=== PATIENT | male | born 1985 | race Caucasian/White ===

== ENCOUNTER 2017-06-27 09:02 | Emergency (ER) | payer OTHER ==
[2017-06-27 09:47] LABS: ABS Basophils 0 10^3/ul (0-0.2); ABS Eosinophils 0.1 10^3/ul (0-0.6); ABS Lymphocytes 1.6 10^3/ul (1.0-4.8); ABS Monocytes 0.4 10^3/ul (0-0.8); ABS Neutrophils 4.1 10^3/ul (1.5-7.7); ABS Nucleated RBC 0 10^3/ul; Eosinophil % 1.2 % (0-6); Hematocrit 45 % (42-52); Hemoglobin 15.6 g/dl (14.0-18.0); Lymphocyte % 25.4 % (25-47); Mean Corpuscular HGB Conc 35 g/dl (31-36); Mean Corpuscular Hemoglobin 31 pg (27-31); Mean Corpuscular Volume 89 fL (80-94); Mean Platelet Volume 8 um3 (7.4-10.4); Nucleated Red Blood Cells % 0.1; Platelet Count 188 10^3/ul (150-450); Red Blood Count 5.11 10^6/ul (4.0-5.4); Red Cell Distribution Width 13 % (10.5-15); White Blood Count 6.3 10^3/ul (3.5-10.8)
--- NOTE | 2017-06-27 09:50 | ED ---
GI/ HPI - HPI Summary HPI Summary: 31-year-old male presents with right upper quadrant pain for the past day. He has never had this pain before. He states food doesn't change his pain. pain last for a couple second at a time and is intermittent. His appetite is normal. He denies any nausea vomiting. Denies any diarrhea or constipation. A normal bowel movement this morning. He denies any pain with urination or hematuria. He denies any flank pain. He denies any chest pain. He does admits occasional shortness of breath he attributes to anxiety. He denies any previous abdominal surgeries. He has not taken anything for his pain. - History of Current Complaint Chief Complaint: EDAbdPain Time Seen by Provider: 06/27/17 09:23 Stated Complaint: ABD PAIN Pain Intensity: 2 - Allergy/Home Medications Allergies/Adverse Reactions: Allergies Allergy/AdvReac Type Severity Reaction Status Date / Time cat dander Allergy Runny Nose Verified 06/27/17 09:07 PMH/Surg Hx/FS Hx/Imm Hx Endocrine/Hematology History: Denies: Hx Anticoagulant Therapy Cardiovascular History: Denies: Hx Hypertension Infectious Disease History: No Infectious Disease History: Denies: Traveled Outside the [place] in Last 30 Days - Family History Known Family History: Negative: Cardiac Disease - Social History Alcohol Use: None Substance Use Type: Reports: None Smoking Status (MU): Unknown if Ever Smoked Review of Systems Negative: Fever Negative: Chest Pain Positive: Shortness Of Breath. Negative: Cough Positive: Abdominal Pain. Negative: Vomiting, Diarrhea, Nausea All Other Systems Reviewed And Are Negative: Yes Physical Exam Triage Information Reviewed: Yes Vital Signs On Initial Exam: Initial Vitals Temp Pulse Resp BP Pulse Ox 98.1 F 102 20 165/103 100 06/27/17 09:07 06/27/17 09:07 06/27/17 09:07 06/27/17 09:07 06/27/17 09:07 Vital Signs Reviewed: Yes Appearance: Positive: Well-Appearing Skin: Positive: Warm, Dry Head/Face: Positive: Normal Head/Face Inspection Eyes: Positive: Normal, Conjunctiva Clear Respiratory/Lung Sounds: Positive: Clear to Auscultation, Breath Sounds Present Cardiovascular: Positive: Normal, RRR Abdomen Description: Positive: Soft, Other: - tenderness in RUQ, no rebound. Negative: CVA Tenderness (R) Bowel Sounds: Positive: Present Musculoskeletal: Positive: Normal Neurological: Positive: Normal Psychiatric: Positive: Normal Diagnostics - Vital Signs Vital Signs Temp Pulse Resp BP Pulse Ox 06/27/17 09:07 98.1 F 102 20 165/103 100 - Laboratory Result Diagrams: 06/27/17 09:36 06/27/17 09:36 Lab Statement: Any lab studies that have been ordered have been reviewed, and results considered in the medical decision making process. - Ultrasound No standard instances Ultrasound Interpretation: No Acute Changes Ultrasound Interpretation Completed By: Radiologist - EKG No standard instances Cardiac Rate: NL EKG Rhythm: Sinus Rhythm EKG Interpretation: sinus rhythm with PVCs GIGU Course/Dx - Course Course Of Treatment: 31-year-old male presents with right upper quadrant pain for the past day. He has never had this pain before. He states food doesn't change his pain. pain last for a couple second at a time and is intermittent. His appetite is normal. He denies any nausea vomiting. Denies any diarrhea or constipation. A normal bowel movement this morning. He denies any pain with urination or hematuria. He denies any flank pain. He denies any chest pain. He does admits occasional shortness of breath he attributes to anxiety. He denies any previous abdominal surgeries. on exam has tenderness RUQ. no rebound. neg CVA tenderness. wbc normal. d-dimer neg. ekg normal. troponin normal. crp normal. normal gallbladder and right kidney u/s. will discharge to have follow up with primary. patient understand and agrees with plan. - Diagnoses Differential Diagnoses - Male: Gall Bladder Disease, Renal Calculi, Renal Colic Provider Diagnoses: Abdominal pain Discharge - Sign-Out/Discharge Documenting (check all that apply): Discharge - Discharge Plan Condition: Good Disposition: HOME Patient Education Materials: Abdominal Pain (ED) Referrals: Dat Sainz MD [Primary Care Provider] - Additional Instructions: Drink small amounts of fluid as tolerated When able to eat follow BRAT diet: Bananas, rice, applesauce, toast Take ibuprofen or Tylenol for pain as needed every 6 hours Follow up with primary within 5 days Return to ED if develop any new or worsening symptoms - Billing Disposition and Condition Condition: GOOD Disposition: HOME
[2017-06-27 10:09] LABS: EGFR Non-African American 90.3 (>60)
--- NOTE | 2017-06-27 10:29 | RAD ---
HISTORY: Right upper quadrant pain. COMPARISONS: None TECHNIQUE: Multiple transverse and longitudinal ultrasound images were obtained of the right upper quadrant. FINDINGS: LIVER: The liver is normal in dimensions and echogenicity. Normal hepatic and portal venous blood flow is duplicated with color flow imaging. There is no gross intrahepatic biliary duct dilatation. GALLBLADDER AND EXTRAHEPATIC BILIARY DUCT: The gallbladder is normal in appearance without intraluminal stones or other soft tissue masses. There is no pericholecystic fluid or gallbladder wall thickening. The common bile duct measures a maximum diameter of 2 mm. PANCREAS: The portions of the pancreas not obscured by bowel gas are normal in appearance. RIGHT KIDNEY: The right kidney is normal in size, morphology and echogenicity. AORTA AND IVC: The visualized portions are normal in appearance and not pathologically dilated. IMPRESSION: Normal ultrasound of the right upper quadrant.
[2017-06-27 10:45] VITALS: BP 127/89
== END 2017-06-27 10:45 | disposition home or self-care (01) ==
LOC: ED 09:02
DX: R10.11 Right upper quadrant pain (principal); R06.02 Shortness of breath
CPT/HCPCS: 36415; 76705; 80053; 83690; 84484; 85025; 85379; 86141; 93005; 99282